=== PATIENT | male | born 1970 | race Two or more races ===

== ENCOUNTER 2020-01-08 21:21 | Inpatient (IN) | payer BC, OTHER ==
[~2020-01-08] VITALS: Ht 180.3 cm; Wt 161.2 kg
[2020-01-08] MEDS ORDERED: SODIUM CHLORIDE 0.9% 1,000ML IVBOLUS ONE (22:00)
--- NOTE | 2020-01-08 22:41 | NUR ---
A&o x4, answering questions appropriately. States he and spouse tested positive for COVID Tuesday, pt was tested d/t spouse's sx. Pt began having sx Tuesday. C/o diarrhea, increased weakness, MILES, nonproductive cough, fever, MCCANN x 6 days. States fever broke yesterday, afebrile upon arrival. Pt states SOB/MILES began yesterday, worsening today. O2 88% RA, placed on 2L NC with good effect. Speaking in clear, full sentences. No s/sx acute distress. Remains on continuous O2 monitoring. Denies chest pain. Consistent MCCANN, denies vision changes/numbness/tingling. Able to move all extremities without difficulty. States diarrhea since Tuesday, improved today. Denies abd pain. No tenderness noted.
[2020-01-08 23:06] LABS: ANION GAP 3 mmol/L (5-15); CALCIUM 8.3 mg/dL (8.5-10.1); CHLORIDE 101 mmol/L (98-107)
[2020-01-08 23:12] LABS: ALANINE AMINOTRANSFERASE 75 U/L (12-78); ALKALINE PHOSPHATASE 88 U/L (45-117); BILIRUBIN,TOTAL 0.3 mg/dL (0.2-1.0); CREATININE 0.91 mg/dL (0.7-1.3); TOTAL PROTEIN 7.6 g/dL (6.4-8.2); TROPONIN I < 0.015 ng/mL (0.000-0.045)
[2020-01-08 23:14] LABS: BASOPHILS % (AUTO) 0 % (0-1); EOSINOPHILS % (AUTO) 0 % (1-7); LYMPHOCYTES % (AUTO) 15 % (22-44); MEAN CORPUSCULAR HEMOGLOBIN 28.2 pg (27.5-34.5); MEAN CORPUSCULAR HGB CONC 33.3 g/dL (33.2-36.2); MEAN PLATELET VOLUME 6.7 fL (7.4-10.4); MONOCYTES % (AUTO) 5 % (2-9); NEUTROPHILS % (AUTO) 81 % (42-75); PLATELET COUNT 312 x10^3/uL (130-400); RED BLOOD COUNT 5.46 x10^6/uL (4.38-5.82); RED CELL DISTRIBUTION WIDTH 14.1 % (9.4-14.8)
[2020-01-08 23:17] LABS: MD NO
[2020-01-09] MEDS ORDERED: MELA5TAB14 PO (00:23)
[2020-01-09] MEDS ORDERED: ALBUTEROL (00:23)
[2020-01-09] MEDS ORDERED: AMLO-211 PO (00:23)
[2020-01-09] MEDS ORDERED: CEFTRIAXONE PMX 1GM/50ML 50 ML IV ONE (00:30)
[2020-01-09] MEDS: AZITHROMYCIN 500 MG in SODIUM CHLORIDE 0.9% 250 ML IV ONE ×2 (00:30→04:22)
[2020-01-09] MEDS ORDERED: CEFTRIAXONE PMX 1GM/50ML 50 ML ONE (01:05)
[2020-01-09] MEDS ORDERED: ACETAMINOPHEN 500 MG TABLET ONE (01:21)
--- NOTE | 2020-01-09 01:28 | NUR ---
Fevern 102.6. Pt also c/o MCCANN. Provider aware. Medicated with Tylenol per provider order. See eMAR for details
[2020-01-09] MEDS ORDERED: ACETAMINOPHEN 500 MG TABLET PO ONE (01:30)
--- NOTE | 2020-01-09 03:11 | NUR ---
Pt sleeping in bed. VSS. WCTM
[2020-01-09] MEDS ORDERED: METHOCARBAMOL 500 MG TABLET PO PRN (03:30)
[2020-01-09] MEDS ORDERED: ZOLPIDEM 5MG TABLET PO PRN (03:30)
[2020-01-09] MEDS ORDERED: ALBUTEROL HFA 90 MCG/SPRAY INH PRN (03:30)
[2020-01-09] MEDS ORDERED: HYDROcodone/APAP 5/325 TABLET PO PRN (03:30)
[2020-01-09] MEDS ORDERED: ACETAMINOPHEN 325 MG TABLET PO PRN (03:30)
[2020-01-09] MEDS ORDERED: METOCLOPRAMIDE 5 MG/ML, 2ML IVPush PRN (03:30)
[2020-01-09] MEDS ORDERED: GUAIFENESIN/DM 200-20MG, 10ML UDC PO PRN (03:30)
[2020-01-09] MEDS ORDERED: ENALAPRILAT 1.25 MG/ML, 2ML IVPush PRN (03:30)
[2020-01-09] MEDS ORDERED: DOCUSATE 100 MG CAPSULE PO PRN (03:30)
[2020-01-09] MEDS ORDERED: morphine SULFATE 10 MG/ML, 1ML IVPush PRN (03:30)
[2020-01-09] MEDS ORDERED: ENOXAPARIN 40 MG/0.4 ML ONE (04:07)
[2020-01-09] MEDS: ENOXAPARIN 40 MG/0.4 ML SQ SCH (04:22)
--- NOTE | 2020-01-09 07:25 | NUR ---
REPORT FROM LYNETTE RN, PT RESTING ON [employer] AT THIS TIME, NAD NOTED. VSS, MEAL TRAY ORDERED
[2020-01-09] MEDS ORDERED: DEXAMETHASONE 1 MG TABLET PO SCH (07:30)
[2020-01-09] MEDS ORDERED: ZINC SULFATE 220 MG CAPSULE ONE (07:48)
[2020-01-09] MEDS ORDERED: DEXAMETHASONE 4 MG TABLET ONE ×2 (07:48→18:10)
[2020-01-09] MEDS ORDERED: FAMOTIDINE 20 MG TABLET ONE ×2 (07:48→19:55)
[2020-01-09] MEDS ORDERED: AMLODIPINE 5 MG TABLET ONE ×2 (07:49→19:55)
[2020-01-09] MEDS ORDERED: ASCORBIC ACID 500 MG TABLET ONE ×2 (07:49→19:53)
[2020-01-09] MEDS: ASCORBIC ACID 500 MG TABLET PO SCH ×2 (08:18→20:01)
[2020-01-09] MEDS: FAMOTIDINE 20 MG TABLET PO SCH ×2 (08:18→20:01)
[2020-01-09] MEDS: ZINC SULFATE 220 MG CAPSULE PO SCH (08:19)
--- NOTE | 2020-01-09 08:21 | NUR ---
PT MEDICATED PER MAR, GIVEN MEAL TRAY. NO OTHER NEEDS AT THIS TIME
[2020-01-09] MEDS ORDERED: AMLODIPINE 10 MG TAB PO SCH (09:00)
--- NOTE | 2020-01-09 10:55 | NUR ---
RESPONDED TO CALL LIGHT. PT'S URINAL FULL AND PT HAD SPILLED URINE ON FLOOR. URINAL EMPTIED, FLOOR CLEANED AND PT PROVIDED BODY WIPES TO CLEAN HIS LEGS. PT PROVIDED COMMODE FOR CONVENIENCE. PT SITTING ON EDGE OF [place] IN POSITION OF COMFORT AT THIS TIME.
--- NOTE | 2020-01-09 11:10 | NUR ---
[facility] CALLED TO OBTAIN BARIATRIC BED FOR PT.
--- NOTE | 2020-01-09 12:30 | NUR ---
PT TO BARIATRIC BED AT THIS TIME, MOVED TO RM 33.
--- NOTE | 2020-01-09 13:44 | NUR ---
PT SATING 99% ON 1L. PT PLACED ON RA CURRENTLY SATING 95-96% WILL CTM. PT STATES HE FEELS "MUCH BETTER" AND WOULD LIKE TO GO HOME.
--- NOTE | 2020-01-09 13:46 | NUR ---
PT GIVEN MEAL TRAY, WILL UPDATE MD
[2020-01-09] MEDS ORDERED: AMLODIPINE 5 MG TABLET PO SCH (15:36)
--- NOTE | 2020-01-09 16:12 | NUR ---
ERMD CALLED TO DISCUSS POC, AWAITING CALL BACK.
--- NOTE | 2020-01-09 16:45 | NUR ---
MUSTAPHA TO COME SPEAK WITH PT.
[2020-01-09] MEDS ORDERED: ACETAMINOPHEN 325 MG TABLET ONE (18:10)
[2020-01-09] MEDS: DEXAMETHASONE 4 MG TABLET PO SCH (18:24)
--- NOTE | 2020-01-09 18:25 | NUR ---
PT MEDICATED PER MAR, GIVEN MEAL TRAY, NO OTHER NEEDS AT THIS TIME
--- NOTE | 2020-01-09 19:43 | NUR ---
1899: REPORT FROM SYEDA CARVAJAL. FIRST CONTACT. PT UPDATED ON POC. O2 SAT 88%RA PLACED ON 2L UP TO 98%. REQUESTED ALL [place]/NIGHT MEDS FROM PHARMACY. REQUESTED BARIATRIC COMMODE. NEEDS MET, AIDET PROVIDED. PT REPORTS HE FEELS BETTER, JUST WHEN GET UP GETS SOB. VSS. WILL CONTINUE TO MONITOR.
[2020-01-09] MEDS: AMLODIPINE 10 MG TAB PO SCH (20:01)
--- NOTE | 2020-01-09 21:02 | NUR ---
REQUESTED BARIATRIC COMMODE FROM [facility].
--- NOTE | 2020-01-09 22:31 | NUR ---
REPORT TO ELADIO MEJIA, MEDS FROM PHARMACY SENT WITH PT. PT MASKED PER POLICY FOR TRANSPORT.
[2020-01-09 23:07] VITALS: BP 127/73
[2020-01-10] MEDS ORDERED: PHARMACY MAY ADJ FOR RENAL FX MC PRN (00:30)
[2020-01-10] MEDS: AZITHROMYCIN 500 MG TABLET PO SCH (01:49)
[2020-01-10] MEDS: CEFTRIAXONE PMX 1GM/50ML 50 ML IVPB SCH (01:49)
[2020-01-10 02:26] VITALS: BP 115/73
[2020-01-10] MEDS: ENOXAPARIN 40 MG/0.4 ML SQ SCH (03:28)
[2020-01-10 05:13] LABS: BASOPHILS % (AUTO) 0 % (0-1); EOSINOPHILS % (AUTO) 0 % (1-7); LYMPHOCYTES % (AUTO) 10 % (22-44); MEAN CORPUSCULAR HEMOGLOBIN 28.2 pg (27.5-34.5); MEAN CORPUSCULAR HGB CONC 33.6 g/dL (33.2-36.2); MEAN PLATELET VOLUME 6.5 fL (7.4-10.4); MONOCYTES % (AUTO) 5 % (2-9); NEUTROPHILS % (AUTO) 85 % (42-75); PLATELET COUNT 330 x10^3/uL (130-400); RED BLOOD COUNT 5.55 x10^6/uL (4.38-5.82); RED CELL DISTRIBUTION WIDTH 13.9 % (9.4-14.8)
[2020-01-10 05:20] LABS: MD NO
[2020-01-10 05:31] LABS: ANION GAP 5 mmol/L (5-15); CALCIUM 9.1 mg/dL (8.5-10.1); CHLORIDE 105 mmol/L (98-107)
[2020-01-10 05:42] LABS: CREATININE 0.84 mg/dL (0.7-1.3)
[2020-01-10 07:35] VITALS: BP 135/73
[2020-01-10] MEDS: DEXAMETHASONE 4 MG TABLET PO SCH ×2 (10:36→17:22)
[2020-01-10] MEDS: ZINC SULFATE 220 MG CAPSULE PO SCH (10:36)
[2020-01-10] MEDS: ASCORBIC ACID 500 MG TABLET PO SCH ×2 (10:37→20:56)
[2020-01-10] MEDS: AMLODIPINE 10 MG TAB PO SCH (10:37)
[2020-01-10] MEDS: FAMOTIDINE 20 MG TABLET PO SCH ×2 (10:37→20:56)
[2020-01-10 12:25] VITALS: BP 133/73
[2020-01-10 19:21] VITALS: BP 136/80
[2020-01-11] MEDS: CEFTRIAXONE PMX 1GM/50ML 50 ML IVPB SCH (00:49)
[2020-01-11] MEDS: AZITHROMYCIN 500 MG TABLET PO SCH (00:49)
[2020-01-11 01:18] VITALS: BP 126/74
[2020-01-11] MEDS: ENOXAPARIN 40 MG/0.4 ML SQ SCH (03:57)
[2020-01-11 05:44] LABS: BASOPHILS % (AUTO) 0 % (0-1); EOSINOPHILS % (AUTO) 0 % (1-7); LYMPHOCYTES % (AUTO) 8 % (22-44); MEAN CORPUSCULAR HEMOGLOBIN 27.9 pg (27.5-34.5); MEAN CORPUSCULAR HGB CONC 33.2 g/dL (33.2-36.2); MEAN PLATELET VOLUME 6.8 fL (7.4-10.4); MONOCYTES % (AUTO) 5 % (2-9); NEUTROPHILS % (AUTO) 88 % (42-75); PLATELET COUNT 357 x10^3/uL (130-400); RED BLOOD COUNT 5.51 x10^6/uL (4.38-5.82); RED CELL DISTRIBUTION WIDTH 13.9 % (9.4-14.8)
[2020-01-11 05:49] LABS: ANION GAP 7 mmol/L (5-15); CHLORIDE 106 mmol/L (98-107); CREATININE 0.81 mg/dL (0.7-1.3)
[2020-01-11 06:27] LABS: MD SCAN
[2020-01-11 08:24] VITALS: BP 126/75
[2020-01-11] MEDS: ASCORBIC ACID 500 MG TABLET PO SCH ×2 (08:40→21:17)
[2020-01-11] MEDS: AMLODIPINE 10 MG TAB PO SCH (08:40)
[2020-01-11] MEDS: DEXAMETHASONE 4 MG TABLET PO SCH ×2 (08:40→16:30)
[2020-01-11] MEDS: ZINC SULFATE 220 MG CAPSULE PO SCH (08:40)
[2020-01-11] MEDS: FAMOTIDINE 20 MG TABLET PO SCH ×2 (08:41→21:17)
[2020-01-11] MEDS: ENOXAPARIN 30 MG/0.3 ML SQ SCH (14:11)
[2020-01-11 14:54] VITALS: BP 121/74
[2020-01-11 20:35] VITALS: BP 126/77
[2020-01-12 00:42] VITALS: BP 126/74
[2020-01-12] MEDS: CEFTRIAXONE PMX 1GM/50ML 50 ML IVPB SCH (00:45)
[2020-01-12] MEDS: AZITHROMYCIN 500 MG TABLET PO SCH (00:45)
[2020-01-12] MEDS: ENOXAPARIN 30 MG/0.3 ML SQ SCH (03:10)
[2020-01-12 07:20] VITALS: BP 129/74
[2020-01-12] MEDS: AMLODIPINE 10 MG TAB PO SCH (08:02)
[2020-01-12] MEDS: ASCORBIC ACID 500 MG TABLET PO SCH ×2 (08:02→19:56)
[2020-01-12] MEDS: ZINC SULFATE 220 MG CAPSULE PO SCH (08:03)
[2020-01-12] MEDS: FAMOTIDINE 20 MG TABLET PO SCH ×2 (08:03→19:56)
[2020-01-12] MEDS: DEXAMETHASONE 4 MG TABLET PO SCH ×2 (08:03→17:13)
[2020-01-12] MEDS: ENOXAPARIN 100 MG/ML SQ SCH ×2 (09:00→19:55)
[2020-01-12] MEDS: ENOXAPARIN 80 MG/0.8 ML SQ SCH ×2 (09:52→19:55)
[2020-01-12 13:01] VITALS: BP 132/78
[2020-01-12 19:34] VITALS: BP 127/77
[2020-01-13] MEDS: AZITHROMYCIN 500 MG TABLET PO SCH (00:12)
[2020-01-13] MEDS: CEFTRIAXONE PMX 1GM/50ML 50 ML IVPB SCH (00:13)
[2020-01-13 00:36] VITALS: BP 120/78
[2020-01-13 07:02] VITALS: BP 125/86
[2020-01-13] MEDS: ENOXAPARIN 100 MG/ML SQ SCH ×2 (09:30→20:56)
[2020-01-13] MEDS: ASCORBIC ACID 500 MG TABLET PO SCH ×2 (09:53→20:56)
[2020-01-13] MEDS: DEXAMETHASONE 4 MG TABLET PO SCH ×2 (09:53→17:00)
[2020-01-13] MEDS: AMLODIPINE 10 MG TAB PO SCH (09:53)
[2020-01-13] MEDS: ZINC SULFATE 220 MG CAPSULE PO SCH (09:53)
[2020-01-13] MEDS: FAMOTIDINE 20 MG TABLET PO SCH ×2 (09:53→20:56)
[2020-01-13] MEDS: ENOXAPARIN 80 MG/0.8 ML SQ SCH ×2 (09:58→20:56)
[2020-01-13 12:15] VITALS: BP 133/83
[2020-01-13 19:37] VITALS: BP 123/81
[2020-01-14] MEDS: CEFTRIAXONE PMX 1GM/50ML 50 ML IVPB SCH ×2 (00:27→23:59)
[2020-01-14] MEDS: AZITHROMYCIN 500 MG TABLET PO SCH ×2 (00:27→23:59)
[2020-01-14 01:29] VITALS: BP 101/53
[2020-01-14 07:08] VITALS: BP 141/85
[2020-01-14] MEDS: ENOXAPARIN 100 MG/ML SQ SCH ×2 (09:00→20:43)
[2020-01-14] MEDS: FAMOTIDINE 20 MG TABLET PO SCH ×2 (09:26→20:42)
[2020-01-14] MEDS: ZINC SULFATE 220 MG CAPSULE PO SCH (09:26)
[2020-01-14] MEDS: ASCORBIC ACID 500 MG TABLET PO SCH ×2 (09:26→20:42)
[2020-01-14] MEDS: AMLODIPINE 10 MG TAB PO SCH (09:26)
[2020-01-14] MEDS: ENOXAPARIN 80 MG/0.8 ML SQ SCH ×2 (09:27→20:43)
[2020-01-14] MEDS: DEXAMETHASONE 4 MG TABLET PO SCH ×2 (09:27→16:50)
[2020-01-14 13:05] VITALS: BP 134/83
[2020-01-14 20:39] VITALS: BP 119/68
[2020-01-15 01:32] VITALS: BP 119/78
[2020-01-15 07:10] VITALS: BP 120/83
[2020-01-15] MEDS: DEXAMETHASONE 4 MG TABLET PO SCH ×2 (08:05→17:00)
[2020-01-15] MEDS: FAMOTIDINE 20 MG TABLET PO SCH (08:05)
[2020-01-15] MEDS: ENOXAPARIN 100 MG/ML SQ SCH (08:05)
[2020-01-15] MEDS: ASCORBIC ACID 500 MG TABLET PO SCH (08:05)
[2020-01-15] MEDS: ENOXAPARIN 80 MG/0.8 ML SQ SCH (08:05)
[2020-01-15] MEDS: AMLODIPINE 10 MG TAB PO SCH (08:05)
[2020-01-15] MEDS: ZINC SULFATE 220 MG CAPSULE PO SCH (08:06)
[2020-01-15 12:57] VITALS: BP 118/80
[2020-01-15] MEDS ORDERED: ZINC220C7 PO (13:18)
[2020-01-15] MEDS ORDERED: DEXA4TAB66 PO (13:18)
[2020-01-15] MEDS ORDERED: ASCO500T9 PO (13:18)
[2020-01-15] MEDS ORDERED: GUAI12009 PO (13:18)
== END 2020-01-15 17:20 | disposition home or self-care (01) | DRG 177 ==
LOC: ED 23:59 → EDIP 01-09 01:22 → 4EST 01-09 22:57
PROVIDERS: ADMIT Internal Medicine; ATTEND Internal Medicine
DX: U07.1 COVID-19 (principal); J12.89 Other viral pneumonia; J96.01 Acute respiratory failure with hypoxia; E87.1 Hypo-osmolality and hyponatremia; Z68.43 Body mass index [BMI] 50.0-59.9, adult; E66.9 Obesity, unspecified; E66.8 Other obesity; I10 Essential (primary) hypertension; J45.909 Unspecified asthma, uncomplicated; Z80.0 Family history of malignant neoplasm of digestive organs; Z82.49 Family history of ischemic heart disease and other diseases of the circulatory system; Z83.3 Family history of diabetes mellitus; Z87.891 Personal history of nicotine dependence; Z99.81 Dependence on supplemental oxygen; Z88.1 Allergy status to other antibiotic agents
CPT/HCPCS: 36415; 71045; 80048; 80053; 83605; 83735; 84100; 84145; 84443; 84484; 85025; 85379; 87040; 93005; 99285; G0378; J0456; J0696; J1650; J7030; J7050

== ENCOUNTER → 2020-02-20 | Outpatient (CLI) | payer BC ==
[~2020-02-20] MED LIST: ALBUTEROL; AMLO-211 PO; ASCO500T9 PO; DEXA4TAB66 PO; GUAI12009 PO; MELA5TAB14 PO; ZINC220C7 PO
== END | disposition home or self-care (01) ==
LOC: CFH 08:50
PROVIDERS: ATTEND Family Medicine
DX: R91.8 Other nonspecific abnormal finding of lung field (principal); J15.0 Pneumonia due to Klebsiella pneumoniae
CPT/HCPCS: 71046

== ENCOUNTER → 2020-03-03 | Outpatient (CLI) | payer BC | END | disposition home or self-care (01) | LOC: CFH 08:21 | PROVIDERS: ATTEND Family Medicine | DX: R91.8 Other nonspecific abnormal finding of lung field (principal); R05 Cough | CPT/HCPCS: 71046 ==